=== PATIENT | female | born 1965 ===

== ENCOUNTER 2020-01-04 13:04 | Emergency (ER) | payer OTHER ==
[~2020-01-04] VITALS: Ht 157.5 cm; Wt 56.8 kg
[2020-01-04 13:12] VITALS: BP 161/70; TEMP 97.9
[2020-01-04 14:06] VITALS: PULSE 71
== END 2020-01-04 14:11 | disposition home or self-care (01) ==
LOC: COL.ER 13:04
DX: T23.162A Burn of first degree of back of left hand, initial encounter (principal); T23.132A Burn of first degree of multiple left fingers (nail), not including thumb, initial encounter; T20.19XA Burn of first degree of multiple sites of head, face, and neck, initial encounter; X08.8XXA Exposure to other specified smoke, fire and flames, initial encounter

== ENCOUNTER 2024-04-24 16:47 | Emergency (ER) | payer OTHER ==
[~2024-04-24] VITALS: Ht 157.5 cm; Wt 65.9 kg
[~2024-04-24 16:47] MED LIST: ATARAX50 MG PO; PREDNISONE10 MG PO
[2024-04-24] MEDS ORDERED: Iohexol 300 - 100 ML VIAL IV ONE (19:11)
[2024-04-24] MEDS ORDERED: NS 100 ML IV ONE (19:12)
[2024-04-24 20:23] VITALS: BP 104/69; PULSE 73; TEMP 98.4
== END 2024-04-24 20:34 | disposition home or self-care (01) ==
LOC: COL.ER 16:47
DX: R59.1 Generalized enlarged lymph nodes (principal)
CPT/HCPCS: Q9967

== ENCOUNTER 2024-06-25 08:54 | Day surgery (SDC) | payer OTHER ==
[2024-06-25] VITALS (8 sets, daily range): BP systolic 102–149; BP diastolic 51–71; PULSE 52–66; TEMP 96.4–97.8
[~2024-06-25] VITALS: Ht 160 cm; Wt 69.1 kg
[~2024-06-25 08:54] MED LIST changes: +HYDROmorphone 1 MG/1 ML SYRINGE [PACU/SDC ONLY] IV PRN; +LR 1,000 ML IV SCH; +Meperidine 50 MG/ML 1 ML VIAL IV PRN; +NS 10 ML IV ONE; +Ondansetron 4 MG/2 ML VIAL IV PRN; +Ondansetron 4 MG/2 ML VIAL ONE; +droPERidol 2.5 MG/ML 2 ML VIAL IV PRN; +fentaNYL 50 MCG/ML 1 ML SYRINGE/VIAL [PACU/SDC ONLY] IV PRN; +fentaNYL 50 MCG/ML 2 ML VIAL ONE; +hydrALAZINE 20 MG/ML 1 ML VIAL IV PRN
[2024-06-25] MEDS ORDERED: BUSPAR10 MG PO (09:56)
[2024-06-25] MEDS ORDERED: NORCO 325 MG-51 TAB PO ×2 (09:57→10:32)
[2024-06-25 10:01] LABS: ALBUMIN 4.1 g/dL (3.5-5.0); CALCIUM 9.6 mg/dL (8.4-10.2); CREATININE, serum 0.77 mg/dL (0.57-1.11); POTASSIUM 4.1 mEq/L (3.5-4.5)
--- NOTE | 2024-06-25 10:15 | NUR ---
1010: NUTRITION CONSULT WITH PATIENT AND SPOUSE IN ROOM. 1013: SOCIAL WORK CONSULT WITH PATIENT AND SPOUSE IN ROOM.
[2024-06-25] MEDS ORDERED: Topical Skin Adhesive 1 EACH (1 ML) TOP ONE (10:32)
[2024-06-25] MEDS ORDERED: BUPivacaine PF 0.5% w EPI (1:200,000) 10 ML VIAL IJ ONE (10:32)
[2024-06-25] MEDS ORDERED: MOTRIN 600600 MG/TAB PO (10:32)
--- NOTE | 2024-06-25 11:04 | NUR ---
wallboard worker received a consult for outpatient PEG tube for pt. COSTA collaborated with Certified Medical Records Coder Shayy who reports pt is scheduled for 11am surgery and will arrive at 9am. COSTA and Certified Medical Records Coder both discussed pt who might not use her feeding tube for about a week to start. COSTA met with pt and her , Francesco [phone] to discuss. they confirmed to live together in [place]. Pt verified her number. She sees Dr. White or SALLY Manjarrez for PCP needs, but also sees Dr. Sood and Dr. Morelos for specialist needs. Pt is independent with ADLS and uses no DME. She does not have a DPOA-HC and was agreeable to her being NOK. Pt verified her insurance as [employer]. SW provided information on where feeding supplies could be obtained/ordered. Pt was agreeable to [facility] as there are limited local options. SW discussed Home Health services for nursing and provided the Medicare.gov list. She declined this at this time. COSTA informed Certified Medical Records Coder of the pt's choice. COSTA was provided with feeding orders and emailed this to [facility] to order.
--- NOTE | 2024-06-25 11:41 | NUR ---
PATIENT RETURNED TO ROOM 8 VIA CART, DROWSY AND ORIENTED X3. RESPONDS TO QUESTIONS. DENIES PAIN, NAUSEA AND SHORTNESS OF BREATH. FACE MASK REMOVED. PATIENT BREATHING REGULAR/UNLABORED ON ROOM AIR. SKIN WARM AND DRY. HANDOFF COMPLETED IN ROOM BY PATIENT FINANCIAL ADVOCATE (SUSIE) AND ROSARIO Bowser CRNA. LEFT NECK INCISION CLEAN AND DRY WITH SKIN GLUE INTACT. LEFT CHEST (PORT) SITE CLEAN AND DRY WITH SKIN GLUE INTACT. SURROUNDING SKIN INTACT. GAUZE AND MEDIPORE PRESENT TO MIDLINE ABDOMEN. VISIBLE PEG TUBE PORTS (2 CAPPED PORTS). ABDOMINAL DRESSING CLEAN, DRY AND INTACT. ABDOMINAL BINDER IN PLACE. PATIENT HAS NO COMPLAINTS. 1147: SPOUSE PRESENT IN ROOM. 1148: PATIENT ALERT AND ORIENTED X3. PATIENT HAD TEA. NO DYSPHAGIA. CALL LIGHT IN REACH.
--- NOTE | 2024-06-25 11:45 | NUR ---
WARM BLANKET APPLIED
--- NOTE | 2024-06-25 11:58 | NUR ---
MET WITH PATIENT AND SPOUSE IN ROOM.
[2024-06-25] MEDS ORDERED: Acetaminophen 325 MG TAB PO PRN (12:00)
[2024-06-25] MEDS ORDERED: Ondansetron 4 MG/2 ML VIAL IV PRN (12:00)
[2024-06-25] MEDS ORDERED: Ibuprofen 600 MG TAB PO PRN (12:00)
[2024-06-25] MEDS ORDERED: Morphine 4 MG/ML VIAL IV PRN (12:00)
--- NOTE | 2024-06-25 12:34 | NUR ---
PAIN REPORT 4/10 TO ABDOMEN. TOLERATING TEA AND JELLO. NO NAUSEA. DISCUSSED PAIN MANAGEMENT OPTIONS WITH PATIENT AND SPOUSE. SEE EMAR FOR NORCO ADMINISTERED.
--- NOTE | 2024-06-25 13:53 | NUR ---
1242: CALL PLACED TO . PER NURSING DOES NOT NEED TO FLUSH PEG TUBE TODAY. 1345: PAIN REPORT- TOLERABLE 3/10 TO ABDOMEN. DENIES INTERVENTIONS. PATIENT AMBULATED TO RESTROOM WITH STEADY GAIT AND VOIDED WITHOUT DIFFICULTY. 1346: DISCHARGE TEACHING COMPLETED. PRINTED EDUCATION, INSTRUCTIONS, PACKETS (PORT-A-CATH AND PEG TUBE), 60ML ENFIT SYRINGE, [facility] STANDARD TUBE FEED AND HEAT TREAT PULLER SENT HOME WITH PATIENT AND SPOUSE. QUESTIONS ANSWERED. BOTH PATIENT AND SPOUSE VERBALIZED UNDERSTANDING. 1350: LEFT NECK AND CHEST INCISIONS CLEAN/DRY WITH SKIN GLUE INTACT. ABDOMINAL BINDER IN PLACE. RIGHT WRIST IV REMOVED. GAUZE AND COBAN PLACED OVER SITE. 1353: PATIENT AND SPOUSE THANKED NURSE FOR CARE. PATIENT WAS DISCHARGED HOME WITH SPOUSE TRANSPORT.
== END 2024-06-25 13:53 | disposition home or self-care (01) ==
LOC: SDCO 08:54
PROVIDERS: Surgery
DX: C13.9 Malignant neoplasm of hypopharynx, unspecified (principal)
CPT/HCPCS: C1788; J0690; J2405; J2704; J3010; J7120